=== PATIENT | female | born 1985 | race Caucasian/White ===

== ENCOUNTER 2018-12-06 23:10 | Emergency (ER) | payer OTHER ==
[2018-12-06 23:19] VITALS: BP 111/78; PULSE 77; TEMP 98.4; BMI 36.0
--- NOTE | 2018-12-07 00:01 | PDOC ---
History of Present Illness - General Chief Complaint: Injury Stated Complaint: FALL Time Seen by Provider: 12/06/18 23:51 - History of Present Illness Initial Comments: 12/07/18 00:00 CHIEF COMPLAINT: fall HISTORY OF PRESENT ILLNESS: 33 yo F with hx of PTSD and scoliosis presents to ED with pain to L forearm and LLE s/p fall. Patient reports she fell at home fell two days ago on a metal magazine rack, but didn't go to the doctor until today. She said she went to Dr. Fuller's office and he told her she should come to the ER. She also c/o of upper back pain secondary to her fall. Denies any loss of sensation to her extremities, denies loss of bowel or bladder function.. She denies any trauma to head or any other part of her body, denies LOC. No recent travel or sick contacts. PAST MEDICAL HISTORY: PTSD FAMILY HISTORY: Denies SOCIAL HISTORY: Denies tobacco, alcohol, illicit drug use. SURGICAL HISTORY: Denies ALLERGIES: No known drug allergies REVIEW OF SYSTEMS General/Constitutional: Denies fever or chills. Denies weakness, weight change. HEENT: Denies change in vision. Denies ear pain or discharge. Denies sore throat. Cardiovascular: Denies chest pain or shortness of breath. Respiratory: Denies cough, wheezing, or hemoptysis. Gastrointestinal: Denies nausea, vomiting, diarrhea or constipation. Denies rectal bleeding. Genitourinary: Denies dysuria, frequency, or change in urination. Musculoskeletal: Pain to L arm, leg, and mid upper back. Skin and breasts: Denies rash or easy bruising. Neurologic: Denies headache, vertigo, loss of consciousness, or loss of sensation. Psychiatric: Denies depression or anxiety. Endocrine: Denies increased thirst. Denies abnormal weight change. Hematologic/Lymphatic: Denies anemia, easy bleeding, or history of blood clots. Allergic/Immunologic: Denies hives or skin allergy. Denies latex allergy. PHYSICAL EXAM General Appearance: Well-appearing, appropriately dressed. No apparent distress , no intoxication. HEENT: EOMI, PERRLA, normal ENT inspection, normal voice, TMs normal, pharynx normal. No conjunctival pallor. No photophobia, scleral icterus. Neck: Supple. Trachea midline. No tenderness, rigidity, carotid bruit, stridor , lymphadenopathy, or thyromegaly. Respiratory/Chest: Lungs CTAB. No shortness of breath, chest tenderness, respiratory distress, accessory muscle use. No crackles, rales, rhonchi, stridor , wheezing, dullness Cardiovascular: RRR. S1, S2. No JVD, murmur, bradycardia, tachycardia. Vascular Pulses: Dorsalis-Pedis (R): 2+, Dorsalis-Pedis (L): 2+ Gastrointestinal/Abdominal: Normal bowel sounds. Abdomen soft, non-distended. No tenderness or rebound tenderness. No organomegaly, pulsatile mass, guarding , hernia, hepatomegaly, splenomegaly. Lymphatic: No adenopathy, tenderness. Musculoskeletal/Extremities: Large areas of ecchymosis to L anterior forearm approximately 10 cm in diameter and and to L lateral thigh approximately 14 cm in diameter. Paravertebral TTP over T1-T3. Normal inspection. FROM of all extremities, normal capillary refill. Pelvis Stable. No CVA tenderness. No tenderness to extremities, pedal edema, swelling, erythema or deformity. Integumentary: Appropriate color, dry, warm. 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 Fully oriented, alert. Appropriate mood/affect. Motor strength 5/5. No appreciable EOM palsy, facial droop or sensory deficit. Past History - Past Medical History Allergies/Adverse Reactions: Allergies Allergy/AdvReac Type Severity Reaction Status Date / Time No Known Drug Allergies Allergy Verified 12/06/18 23:17 Home Medications: Ambulatory Orders BUPROPion HCL [Wellbutrin] 450 mg PO DAILY 06/06/12 Acetaminophen [Tylenol .Extra-Strength -] 1,000 mg PO Q6H PRN #24 tablet Asthma: Yes Psychiatric Problems: Yes (PTSD) - Psycho Social/Smoking Cessation Hx Smoking Status: No Smoking History: Never smoked Have you smoked in the past 12 months: No Number of Cigarettes Smoked Daily: 0 If you are a former smoker, when did you quit?: 2ys ago Information on smoking cessation initiated: No Hx Alcohol Use: No Drug/Substance Use Hx: No Substance Use Type: None *Physical Exam - Vital Signs Last Vital Signs Temp Pulse Resp BP Pulse Ox 98.4 F 77 20 111/78 97 12/06/18 23:17 12/06/18 23:17 12/06/18 23:17 12/06/18 23:17 12/06/18 23:17 Medical Decision Making - Medical Decision Making 12/07/18 01:02 33 yo F with hx of PTSD and scoliosis presents to ED with pain to L forearm and LLE s/p fall. -xray, forearm and femur Patient full ambulatory and pacing around ER holding purse, requesting faster service because she has to catch her train. 12/07/18 01:05 wet read of xrays negative for fracture. Discharge - Discharge Information Problems reviewed: Yes Clinical Impression/Diagnosis: Bruise Fall Qualifiers: Encounter type: initial encounter Qualified Code(s): W19.XXXA - Unspecified fall, initial encounter Condition: Stable Disposition: HOME - Admission No - Follow up/Referral - Patient Discharge Instructions Patient Printed Discharge Instructions: DI for Hematoma (Bruise) - Post Discharge Activity
[2018-12-07] MEDS ORDERED: KETOROLAC TROMETHAMINE 30 MG/1 ML VIAL IM ONE (00:03)
[2018-12-07] MEDS ORDERED: KETOROLAC TROMETHAMINE 30 MG/1 ML VIAL ONE (00:15)
--- NOTE | 2018-12-07 01:16 | PDOC ---
*Physical Exam - Vital Signs Last Vital Signs Temp Pulse Resp BP Pulse Ox 98.4 F 77 20 111/78 97 12/06/18 23:17 12/06/18 23:17 12/06/18 23:17 12/06/18 23:17 12/06/18 23:17 ED Treatment Course - Medications Given in the ED: ED Medications Discontinued Medications Generic Name Dose Route Start Last Admin Trade Name Freq PRN Reason Stop Dose Admin Ketorolac Tromethamine 30 mg 12/07/18 00:03 12/07/18 00:23 Toradol Injection - IM 12/07/18 00:04 30 mg ONCE ONE Administration Medical Decision Making - Medical Decision Making 12/07/18 01:16 Case reviewed, agree with assessment and plan Discharge - Discharge Information Problems reviewed: Yes Clinical Impression/Diagnosis: Bruise Fall Qualifiers: Encounter type: initial encounter Qualified Code(s): W19.XXXA - Unspecified fall, initial encounter Condition: Stable Disposition: HOME - Follow up/Referral - Patient Discharge Instructions Patient Printed Discharge Instructions: DI for Hematoma (Bruise) - Post Discharge Activity
== END 2018-12-07 01:10 | disposition home or self-care (01) ==
LOC: JER 23:10
PROC: 3E0233Z Introduction of Anti-inflammatory into Muscle, Percutaneous Approach (ICD-10-PCS; principal; 2018-12-06)
DX: S50.12XA Contusion of left forearm, initial encounter (principal); S70.12XA Contusion of left thigh, initial encounter; S20.222A Contusion of left back wall of thorax, initial encounter; W01.190A Fall on same level from slipping, tripping and stumbling with subsequent striking against furniture, initial encounter; Y93.89 Activity, other specified; Y92.038 Other place in apartment as the place of occurrence of the external cause; Y99.8 Other external cause status; M41.9 Scoliosis, unspecified; F43.10 Post-traumatic stress disorder, unspecified
CPT/HCPCS: 73090-TC-LT-FY; 73552-TC-LT-FY; 99282-25